=== PATIENT | male | born 1970 | race Hispanic/Latino ===

== ENCOUNTER 2018-06-12 02:53 | Emergency (ER) | payer OTHER ==
[2018-06-12 03:06] VITALS: RESP 18; TEMP 97.9; O2SAT 96; BMI 24.1
--- NOTE | 2018-06-12 04:37 | ED PDOC ---
Lower Extremity Pain/Injury Time Seen by Provider: 06/12/18 03:16 Chief Complaint (Nursing): Lower Extremity Problem/Injury Chief Complaint (Provider): Lower Extremity Problem/Injury History Per: Patient History/Exam Limitations: no limitations Onset/Duration Of Symptoms: Sudden Onset Current Symptoms Are (Timing): Still Present Additional Complaint(s): Patient reports injury of the great right toe, while knocking on his door with foot after he was accidentally locked out of home while walking dog. Otherwise: (-) numbness, or (-) other injury. PMD: Dr. Rosalino Pineda Past Medical History Reviewed: Historical Data, Nursing Documentation, Vital Signs Vital Signs: Last Vital Signs Temp 97.9 F 06/12/18 03:05 Pulse 86 06/12/18 03:05 Resp 18 06/12/18 03:05 BP 153/95 H 06/12/18 03:05 Pulse Ox 96 06/12/18 03:05 - Medical History PMH: No Chronic Diseases - Surgical History Surgical History: No Surg Hx - Family History Family History: States: Unknown Family Hx - Allergies Allergies/Adverse Reactions: Allergies Allergy/AdvReac Type Severity Reaction Status Date / Time No Known Allergies Allergy Verified 06/12/18 03:49 Review of Systems ROS Statement: Except As Marked, All Systems Reviewed And Found Negative Musculoskeletal: Positive for: Foot Pain (right great toe) Neurological: Negative for: Numbness Physical Exam - Reviewed Nursing Documentation Reviewed: Yes Vital Signs Reviewed: Yes - Physical Exam Comments: GENERAL APPEARANCE: Patient is awake, alert, oriented x 3, in mild painful distress. SKIN: Warm, dry; (-) cyanosis. LOWER EXTREMITY: (+) edema, ecchymosis and tenderness of the right great toe, (+ ) limited range of motion secondary to pain. Achilles tendon intact and nontender. CARDIOVASCULAR: (+) distal pulse of right lower extremity. NEUROLOGIC: (+) distal sensation. - ECG O2 Sat by Pulse Oximetry: 96 (RA) Pulse Ox Interpretation: Normal Medical Decision Making Medical Decision Making: Initial Impression: Foot injury Initial Plan: * Xray foot (right) XR R foot : +displaced fracture of the 1st proximal phalanx and +comminuted fracture of tip of the 1st distal phalanx, no dislocation, as read by PA XR results d/w podiatry resident Dr. Lisa De Leon, who will review XRs and evaluate the patient. XR results d/w the patient, notified of plan of podiatry resident to evaluate him in the ER, which patient agrees to. Scribe Attestation: Documented by Drea Barnes, acting as a scribe for Kelli Mosley PA-C. Provider Scribe Attestation: All medical record entries made by the Scribe were at my direction and personally dictated by me. I have reviewed the chart and agree that the record accurately reflects my personal performance of the history, physical exam, medical decision making, and the department course for this patient. I have also personally directed, reviewed, and agree with the discharge instructions and disposition. Disposition - Clinical Impression Clinical Impression: Fracture of right great toe - Patient ED Disposition Is Patient to be Admitted: No Counseled Patient/Family Regarding: Studies Performed, Diagnosis, Need For Followup - Disposition Disposition: Routine/Home Disposition Time: 06:30 Condition: STABLE Additional Instructions: Thank you for letting us take care of you today. You were treated for R great toe fracture. The emergency medical care you received today was directed towards the acute presenting symptoms. If you were prescribed any medication, please fill it and give as directed. It may take several days for your symptoms to resolve. Return to the Emergency Department at any time if symptoms worsen, do not improve, or if any other problems arise. Please contact your doctor in 2 days for re-evaluation and follow up / or call one of the physicians/clinics you have been referred to that are listed on the Patient Visit Information form that is included in your discharge packet. Bring any paperwork you were given at discharge with you along with any medications to your follow up visit. Our treatment cannot replace ongoing medical care by a primary care provider (PCP) outside of the emergency department. Thank you for allowing the [facility] team to be part of your care today. Instructions: Toe Fracture (DC) Forms: [employer] ([employer]) - PA / PARCEL POST OFFICER / Resident Statement MD/DO has reviewed & agrees with the documentation as recorded.
--- NOTE | 2018-06-12 07:13 | CP.PCM.CON ---
History of Present Illness - History of Present Illness History of Present Illness: Podiatry consult note for attending Dr. Weller 48 y/o male patient with no significant PMHx seen and evaluated at bedside for pain and swelling to the right great toe. Patient states he "kicked" his bedroom door this morning to wake his . Patient states it occurred around 3 am this morning. Patient states the pain has progressively worsened since his stubbed his toe and patient states digit is painful to touch. Patient is alert and awake, and does not have other pedal complaints. Patient denied numbness to the digit. Patient denies F/N/V/SOB/chills. Patient alone in the ED when seen by Podiatry. PMHx: shoulder bursitis, denies chronic diseases PSHx: denies surgical history Medications: denies use of any medications Allergies: denies allergies to food or drugs Review of Systems - Review of Systems All systems: reviewed and no additional remarkable complaints except Review of Systems: As per HPI Past Patient History - Past Social History Smoking Status: Never Smoked - PSYCHIATRIC Hx Substance Use: No - SURGICAL HISTORY Hx Surgeries: No - ANESTHESIA Hx Anesthesia: No Meds Home Medications: Home Medication List Medication Instructions Recorded Confirmed Type oxyCODONE/Acetaminophen [Percocet 1 ea PO Q6 PRN #15 tab 06/12/18 Rx 5/325 mg Tab] Allergies/Adverse Reactions: Allergies Allergy/AdvReac Type Severity Reaction Status Date / Time No Known Allergies Allergy Verified 06/12/18 03:49 Physical Exam - Constitutional Appears: Well, Non-toxic, No Acute Distress - Head Exam Head Exam: ATRAUMATIC, NORMOCEPHALIC - Extremities Exam Additional comments: Bilateral Lower Extremity Exam: VASC: DP and PT 2/4 bilaterally, CFT less than 3 seconds X 10; no varicosities, Temperature Gradient within normal limits, non-pitting edema present to the right hallux NEURO: Epicritic and Protective sensation intact, touch sensation intact to the right great toe DERM: ecchymosis present to the distal tip of the right hallux and to the plantar and medial aspect of the right hallux, non-pitting edema present to the right hallux, right hallucal nail intact, no subungual hematoma noted ORTHO: painful on palpation to the right toe, unable to perform range of motion to the 1st MTPJ and 1st IPJ due to patient guarding, digit slightly deviated towards the right 2nd digit, no pain on palpation to the right 2nd digit, no pain with range of motion of the right 2nd digit - Neurological Exam Neurological exam: Alert, Oriented x3 - Psychiatric Exam Psychiatric exam: Normal Affect, Normal Mood Results - Vital Signs Recent Vital Signs: Last Vital Signs Temp 97.9 F 06/12/18 03:05 Pulse 86 06/12/18 03:05 Resp 18 06/12/18 03:05 BP 153/95 H 06/12/18 03:05 Pulse Ox 96 06/12/18 05:46 Assessment & Plan - Assessment and Plan (Free Text) Assessment: 48 y/o male seen and evaluated for pain and swelling to the right great toe Plan: Patient seen and evaluated at bedside for attending Dr. Weller Plan discussed with attending Dr. Weller Right Foot X-rays: fracture noted of the distal tip of the distal phalanx of the right hallux; dorsal displaced, non-through and through fracture noted of the proximal phalanx of the right hallux Patient thoroughly explained the etiology of fracture/fracture healing process, reviewed imaging with patient, and all patient questions answered to satisfaction Patient explained the fracture will not be reduced in the Emergency Department Patient Right great Toe wrapped in CoBan to aid in swelling Patient placed in a surgical shoe Patient provided with crutches for ambulation as patient is to remain non- weight bearing to the right foot Patient crutches measured to size and patient taught how to use crutches Patient denied prescription for pain medication Patient advised to use over the counter Ibuprofen if pain worsens Patient strongly advised to stay non-weight bearing Patient advised to use a chair in the shower to avoid standing on the right foot Patient provided with information to follow-up in Dr. Weller's office within the week Thank you for the Podiatry consult - Date & Time Date: 06/12/18 Time: 07:34
[2018-06-12 07:29] VITALS: BP 152/89; PULSE 72
--- NOTE | 2018-06-12 10:38 | RAD ---
Date of service: 06/12/2018 PROCEDURE: Right Foot Radiographs. HISTORY: trauma great toe COMPARISON: None. FINDINGS: BONES: Intraarticular fracture of the distal portion of the 1st proximal phalanx. Comminuted fracture of the 1st distal phalanx tuft. Hallux valgus deformity. JOINTS: Normal. SOFT TISSUES: Normal. OTHER FINDINGS: None. IMPRESSION: Intraarticular fracture of the distal portion of the 1st proximal phalanx. Comminuted fracture of the 1st distal phalanx tuft.
== END 2018-06-12 07:10 | disposition home or self-care (01) ==
LOC: H.ER 02:53
DX: S92.401A Displaced unspecified fracture of right great toe, initial encounter for closed fracture (principal); W22.09XA Striking against other stationary object, initial encounter